=== PATIENT | male | born 1945 | race Caucasian/White ===

== ENCOUNTER 2018-02-08 06:33 | Day surgery (SDC) | payer MEDICARE ==
[2018-02-04 14:41] LABS: ALBUMIN 3.9 G/DL (3.4-5.0); ALBUMIN/GLOBULIN RATIO 1.2 (1.1-1.5); ALKALINE PHOSPHATASE 112 IU/L (46-116); BLOOD UREA NITROGEN 16 MG/DL (7-18); CALCIUM 9.5 MG/DL (8.5-10.1); CHLORIDE 101 MMOL/L (99-107); CREATININE 1.23 MG/DL (0.60-1.10); PRE OP ALT 47 U/L (30-65); PRE OP ANION GAP 9 (8-16); PRE OP AST 31 U/L (10-37); PRE OP BILIRUB, TOTAL 0.7 MG/DL (0.0-1.0); PRE OP POTASSIUM 3.5 MMOL/L (3.4-5.1); PRE OP SODIUM 139 MMOL/L (135-145); TOTAL CARBON DIOXIDE 28.7 MMOL/L (24-32); TOTAL PROTEIN 7.1 G/DL (6.4-8.2); eGFR 58 ML/MIN
[2018-02-04 14:49] LABS: PRE OP GLUCOSE 206 MG/DL (70-104)
[2018-02-04 14:50] LABS: BASOPHILS % (AUTO) 0.5 % (0-1); EOSINOPHILS # (AUTO) 0.2 X10'3 (0-0.9); EOSINOPHILS % (AUTO) 2.3 % (0-6); LYMPHOCYTES # (AUTO) 1.3 X10'3 (1.1-4.8); LYMPHOCYTES % (AUTO) 14.3 % (21-51); MEAN CORPUSCULAR HGB CONC 34.5 % (33.0-36.5); MEAN CORPUSCULAR VOLUME 95.4 FL (78-98); MONOCYTES # (AUTO) 0.7 X10'3 (0-0.9); MONOCYTES % (AUTO) 7.5 % (2-12); NEUTROPHILS # (AUTO) 6.6 X10'3 (1.8-7.7); NEUTROPHILS % (AUTO) 75.4 % (42-75); PRE OP HEMATOCRIT 45.4 % (42.0-52.0); PRE OP HEMOGLOBIN 15.7 g/dL (14.0-17.9); PRE OP PLATELET COUNT 216 X10'3 (140-440); RED BLOOD COUNT 4.76 X10'6 (4.70-6.10); RED CELL DISTRIBUTION WIDTH 11.7 % (11.5-14.5)
[2018-02-04 15:38] LABS: HEMOGLOBIN A1C 5.3 % (4.5-6.2)
[~2018-02-08] VITALS: Ht 170.2 cm; Wt 99.4 kg
[~2018-02-08 06:33] MED LIST: ALLO300T2 PO; CHOL100046 PO; GLUC1CAP33 PO; IBUP-1594 PO; KRIL1CAP PO; LOSA1TAB39 PO; METH500C6 PO; ceFAZolin 2gm in dextrose, iso 100 ML IV ONE; famotidine 20mg tablet PO ONE; losartan 50mg tablet PO ONE; ringers solution, lacted 1,000 ML IV SCH
[2018-02-08] MEDS ORDERED: ROPIVAcaine 0.5% (5mg/ml) 30ml vial ONE (06:54)
[2018-02-08 07:00] VITALS: BP 163/86
[2018-02-08] MEDS ORDERED: LIDOcaine 0.5% (5mg/ml) 50ml vial ONE (07:23)
[2018-02-08] MEDS ORDERED: ringers solution, lacted 1,000 ML IV SCH (07:26)
[2018-02-08] MEDS ORDERED: meperidine/PF 25mg/ml syringe IV PRN ×3 (07:30)
[2018-02-08] MEDS ORDERED: proCHLORperazine 10 MG/2 ml inj IV PRN (07:30)
[2018-02-08] MEDS ORDERED: ondansetron/PF 4mg/2ml inj IV PRN (07:30)
[2018-02-08] MEDS ORDERED: morphine 4 MG/ML inj SYRINge IV PRN ×2 (07:30)
[2018-02-08 08:10] VITALS: BP 163/86
[2018-02-08] MEDS ORDERED: MIDAZolam 5mg/5ml vial ONE (09:19)
[2018-02-08] MEDS ORDERED: fentaNYL/PF 50MCG/1 ML 2ML syringe ONE (09:19)
[2018-02-08] MEDS ORDERED: sodium bicarbonate 1 MEQ/1 ml inj ONE (09:43)
[2018-02-08] MEDS ORDERED: propofol inj 20 ML IV ONE (09:43)
[2018-02-08 09:59] VITALS: BP 145/85
[2018-02-08 10:09] VITALS: BP 148/85
[2018-02-08 10:19] VITALS: BP 151/83
[2018-02-08 10:29] VITALS: BP 134/76
== END 2018-02-08 10:39 | disposition home or self-care (01) ==
LOC: PAS 06:33
PROVIDERS: ATTEND Orthopaedic Surgery Hand Surgery
DX: G56.02 Carpal tunnel syndrome, left upper limb (principal); G56.22 Lesion of ulnar nerve, left upper limb; I10 Essential (primary) hypertension; E66.9 Obesity, unspecified; Z79.1 Long term (current) use of non-steroidal anti-inflammatories (NSAID); Z90.89 Acquired absence of other organs; Z72.89 Other problems related to lifestyle; Z79.891 Long term (current) use of opiate analgesic; Z68.34 Body mass index [BMI] 34.0-34.9, adult; Z79.899 Other long term (current) drug therapy
CPT/HCPCS: 36415; 64719; 64721; 80053; 83036; 85025; 93005; A6222; A6449; J0690; J2001; J2250; J2704; J2795; J3010; J7120